=== PATIENT | female | born 1965 | race Caucasian/White ===

== ENCOUNTER 2020-02-09 17:57 | Emergency (ER) | payer SELFPAY ==
[~2020-02-09] VITALS: Ht 162.6 cm; Wt 76.2 kg
--- NOTE | 2020-02-09 18:10 | NUR ---
[id number] FRM HOME FOR WITNESSED SEIZURE. NO HISTORY. 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 ON ROOM AIR, BREATHING EVENLY AND UNLABORED. CONNECTED TO THE MONITOR AND PULSE OX. KEPT COMFORTABLE, WILL CONTINUE TO MONITOR ACCORDINGLY.
[2020-02-09 18:41] LABS: BASOPHILS % (AUTO) 0.4 % (0.0-2.0); EOSINOPHILS % (AUTO) 0.3 % (0.0-6.0); HEMATOCRIT 45 % (33-45); HEMOGLOBIN 15.2 g/dL (11.5-14.8); LYMPHOCYTES # (AUTO) 0.6 /CMM (0.8-4.8); LYMPHOCYTES % (AUTO) 7.1 % (20.0-44.0); MEAN CORPUSCULAR HGB CONC 34 g/dl (31.0-36.0); MEAN CORPUSCULAR VOLUME 98 fL (82-100); MONOCYTES # (AUTO) 0.6 /CMM (0.1-1.30); MONOCYTES % (AUTO) 6.9 % (2.0-12.0); NEUTROPHILS # (AUTO) 7.2 /CMM (1.8-8.9); NEUTROPHILS % (AUTO) 85.3 % (43.0-81.0); PLATELET COUNT (AUTO) 182 /CMM (150-450); RED BLOOD CELL COUNT(AUTO) 4.59 MIL/uL (4.0-5.2); WHITE BLOOD COUNT (AUTO) 8.4 K/uL (4.3-11.0)
--- NOTE | 2020-02-09 18:48 | NUR ---
pt to ct on [place]
[2020-02-09 18:56] LABS: ALANINE AMINOTRANSFERASE 30 U/L (12-78); ALBUMIN 4.5 g/dL (3.4-5.0); ALCOHOL, BLOOD < 3 mg/dL (0-0); ALKALINE PHOSPHATASE 80 U/L (46-116); ASPARTATE AMINOTRANSFERASE 36 U/L (15-37); BILIRUBIN,DIRECT 0.2 mg/dL (0.0-0.2); BILIRUBIN,TOTAL 0.9 mg/dL (0.2-1.0); CALCIUM, SERUM 9.9 mg/dL (8.5-10.1); CARBON DIOXIDE 22 mmol/L (21-32); CHLORIDE 99 mmol/L (98-107); CREATININE 0.9 mg/dL (0.6-1.3); GLUCOSE 178 mg/dL (74-106); SODIUM SERUM 134 mmol/L (136-145); TOTAL PROTEIN, SERUM 8.1 g/dL (6.4-8.2); UREA NITROGEN, BLOOD 9 mg/dL (7-18)
[2020-02-09 18:59] LABS: POTASSIUM 2.6 mmol/L (3.5-5.1)
[2020-02-09] MEDS ORDERED: LEVETIRACETAM (500MG) 1,000 MG in IV NS 0.9% 100 ML IV STA (19:10)
[2020-02-09] MEDS ORDERED: POTASSIUM CHLORIDE 20 MEQ TAB.PRT.SR PO ONE ×4 (19:15→20:39)
[2020-02-09] MEDS ORDERED: POTASSIUM CL. PREMIX PERIPHER. 50 ML ONE (19:15)
[2020-02-09 19:29] VITALS: BP 124/69
[2020-02-09] MEDS ORDERED: POTASSIUM CL. PREMIX PERIPHER. 50 ML IV SCH (19:30)
--- NOTE | 2020-02-09 19:34 | NUR ---
report given to Ken ACOSTA for mel.
--- NOTE | 2020-02-09 20:44 | NUR ---
Patient does not wish to proceed with medical care recommended by Dr. Recio. Patient given information related to possible complications, up to and including , which could occur as a result of leaving the hospital at this time. Patient verbalizes understanding of risks involved due to leaving against medical advice. Patient has signed AMA form.
== END 2020-02-09 21:38 | disposition home or self-care (01) ==
LOC: ER 18:00
DX: R56.9 Unspecified convulsions (principal); E87.6 Hypokalemia; Z90.89 Acquired absence of other organs
CPT/HCPCS: 36415; 70450; 71045; 80048; 80076; 80305; 80307; 83735; 85025; 85730; 93005; 96365; 96368; 99285; J1953; J3480; J7030; J7050; G0480

== ENCOUNTER 2020-02-10 11:26 | Emergency (ER) | payer SELFPAY ==
[~2020-02-10] VITALS: Ht 165.1 cm; Wt 77.1 kg
--- NOTE | 2020-02-10 12:27 | NUR ---
BIBS TO ER BED 7. AAOX4. NOT IN RESP DISTRESS. AMBULATORY. CAME IN FOR FEELING OF LIGHTHEADEDNESS AND DIZZYNESS. PT WAS HERE AT THE ER YESTERDAY FOR A NEW ONSET SEIZURE. PT WAS DISCHARGED W/ RECOMMENDATION TO HAVE AN MRI DONE. PT CAME BACK TODAY ALSO ASKING FOR AN MRI. PT DENIES HAVING ANOTHER EPISODE OF SEIZURE. WAS AT THE BEDSIDE FOR EVAL. AWAITING ORDERS
[2020-02-10] MEDS ORDERED: IV NS 0.9% 1,000 ML BAG IV ONE (13:00)
[2020-02-10 13:05] LABS: CALCIUM, SERUM 9.6 mg/dL (8.5-10.1); CREATININE 0.9 mg/dL (0.6-1.3); POTASSIUM 3.5 mmol/L (3.5-5.1)
[2020-02-10 13:10] LABS: ALBUMIN 4.2 g/dL (3.4-5.0); BILIRUBIN,DIRECT 0.2 mg/dL (0.0-0.2); BILIRUBIN,TOTAL 0.8 mg/dL (0.2-1.0); TOTAL PROTEIN, SERUM 7.7 g/dL (6.4-8.2)
[2020-02-10 13:17] LABS: BASOPHILS % (AUTO) 0.4 % (0.0-2.0); EOSINOPHILS % (AUTO) 0.9 % (0.0-6.0); HEMATOCRIT 45 % (33-45); HEMOGLOBIN 15.1 g/dL (11.5-14.8); LYMPHOCYTES % (AUTO) 12.3 % (20.0-44.0); MEAN CORPUSCULAR HGB CONC 34 g/dl (31.0-36.0); MEAN CORPUSCULAR VOLUME 99 fL (82-100); MONOCYTES # (AUTO) 0.6 /CMM (0.1-1.30); MONOCYTES % (AUTO) 7.1 % (2.0-12.0); NEUTROPHILS # (AUTO) 6.6 /CMM (1.8-8.9); NEUTROPHILS % (AUTO) 79.3 % (43.0-81.0); PLATELET COUNT (AUTO) 166 /CMM (150-450); RED BLOOD CELL COUNT(AUTO) 4.58 MIL/uL (4.0-5.2); WHITE BLOOD COUNT (AUTO) 8.3 K/uL (4.3-11.0)
--- NOTE | 2020-02-10 14:25 | NUR ---
Patient discharged to home in stable condition. Written and verbal after care instructions given. Patient verbalizes understanding of instruction.IV removed. Catheter intact and site benign. Pressure and 4x4 applied to site. No bleeding noted. Pt ambulatory with a steady gait
[2020-02-10 14:26] VITALS: BP 117/77
== END 2020-02-10 14:27 | disposition home or self-care (01) ==
LOC: ER 11:29
DX: E87.6 Hypokalemia (principal); R42 Dizziness and giddiness
CPT/HCPCS: 36415; 80048; 80076; 83690; 83735; 85025; 96360; 99283; J7030